=== PATIENT | female | born 1960 | race Caucasian/White ===

== ENCOUNTER 2018-08-31 19:03 | Emergency (ER) | payer MEDICARE, OTHER ==
[~2018-08-31] VITALS: Ht 162.6 cm; Wt 79.4 kg
[2018-08-31] MEDS ORDERED: CRESTOR10 M2 ORAL (19:13)
[2018-08-31] MEDS ORDERED: FLOVENT DISKU100 MC1 IH (19:13)
[2018-08-31] MEDS ORDERED: OMEPRAZOLE20 M2 ORAL (19:13)
[2018-08-31 19:25] VITALS: BP 152/81
--- NOTE | 2018-08-31 19:25 | NUR ---
ED Nurse Note: Pt arrived ED from home, c/o lower abdominal pain for 2 days. Pt is A/O X 4. Vital signs stable at this time, waiting for orders.
--- NOTE | 2018-08-31 19:41 | NUR ---
ED Nurse Note: Blood and urine collected and sent to Lab.
--- NOTE | 2018-08-31 19:49 | NUR ---
ED Nurse Note: Meds given as ordered.
--- NOTE | 2018-08-31 19:51 | Emergency Room Report ---
History of Present Illness General Chief Complaint: Abdominal Pain Source: Patient Present Illness HPI 58-year-old female with history of hiatal hernia and gastroesophageal reflux disease here complaining of increased abdominal pain especially in the left lower quadrant x2 days. She also complains of extreme nausea however denies vomiting and acid reflux. Patient is currently on omeprazole for acid reflux. Has not seen a GI doctor in 2 years. Last endoscopy was in 2016. Patient denies blood in stool, recent travel, fever and chills. Patient is rating the pain 3 out of 10 upon palpation and movement, denies radiation and has not taken any medication for pain. Denies history of hypertension and is compliant with taking his hyperlipidemia medication. Denies smoking, alcohol intake, drug use. Denies urinary frequency, and dysuria. Denies chest pain, shortness of breath, palpitation, dizziness and all other associated symptoms. Allergies: Coded Allergies: SULFA (SULFONAMIDE ANTIBIOTICS) (Verified Allergy, Unknown, 08/31/18) Patient History Past Medical History: see triage record Past Surgical History: unable to obtain Pertinent Family History: none Last Menstrual Period: 5 years ago Now: No Immunizations: UTD Reviewed Nursing Documentation: PMH: Agreed; PSxH: Agreed Nursing Documentation-PMH Past Medical History: No History, Except For Hx Asthma: Yes Hx Gastrointestinal Problems: Yes - GERD, HIATAL HERNIA Review of Systems All Other Systems: negative except mentioned in HPI Physical Exam Vital Signs Date Time Temp Pulse Resp B/P (MAP) Pulse Ox O2 Delivery O2 Flow Rate FiO2 08/31/18 19:06 97.7 67 16 156/88 (110) 98 Room Air Sp02 EP Interpretation: reviewed, normal General Appearance: normal inspection, well appearing, no apparent distress Head: normocephalic, atraumatic Eyes: bilateral eye normal inspection, bilateral eye PERRL ENT: normal ENT inspection, hearing grossly normal, normal pharynx Neck: normal inspection, full range of motion, supple Respiratory: normal inspection, chest non-tender, normal breath sounds, no wheezing Cardiovascular #1: normal inspection, normal peripheral pulses, regular rate, rhythm, no murmur, normal capillary refill Gastrointestinal: normal bowel sounds, no organomegaly, no peritonitis, no bruit, non-distended, no guarding, no pulsatile mass, no rebound, hernia - Reducible and ventral area Rectal: deferred Genitourinary: no CVA tenderness Musculoskeletal: normal inspection, back normal Neurologic: normal inspection, alert, oriented x3 Psychiatric: normal inspection, judgement/insight normal Skin: normal inspection, normal color, no rash, warm/dry, palpation normal, well hydrated Lymphatic: normal inspection, no adenopathy Medical Decision Making PA Attestation All my diagnosis and treatment plans were reviewed ad discussed with my supervising physician Dr. Chávez Diagnostic Impression: Primary Impression: Abdominal pain Additional Impression: Hiatal hernia ER Course 58-year-old female with history of hiatal hernia and gastroesophageal reflux disease here complaining of increased abdominal pain especially in the left lower quadrant x2 days. She also complains of extreme nausea however denies vomiting and acid reflux. Patient is currently on omeprazole for acid reflux. Has not seen a GI doctor in 2 years. Last endoscopy was in 2016. Patient denies blood in stool, recent travel, fever and chills. Patient is rating the pain 3 out of 10 upon palpation and movement, denies radiation and has not taken any medication for pain. Denies history of hypertension and is compliant with taking his hyperlipidemia medication. Denies smoking, alcohol intake, drug use. Denies urinary frequency, and dysuria. Denies chest pain, shortness of breath, palpitation, dizziness and all other associated symptoms. Ddx considered but are not limited to: appendicitis, cholycisitis, gastritis, gasthroentritis, UTI, pylonephritis, SBO, diverticulitis, influenza with GI manifestation, HI, complication with Vital signs: are WNL, pt. is afebrile H&PE are most consistent with: abd pain secondary to viral infx, hiatal hernia ORDERS: abdominal CT, abdominal pain set, EKG, CXR, zofran ED INTERVENTIONS: zofran 4mg IM DISCHARGE: At this time pt. is stable for d/c to home. Will provide printed patient care instructions, and any necessary prescriptions. Care plan and follow up instructions have been discussed with the patient prior to discharge. I advised the patient to follow-up with a primary care provider for referral to reconciliation machine operator regarding her hiatal hernia at this point there is no acute changes secondary to her hernia lower abdominal pain most likely secondary to viral etiology as the rest of her examination and blood work are within normal limits avoid spicy and acidic food take Zofran as directed increase electrolyte water intake EKG Diagnostic Results Rate: normal Rhythm: NSR ST Segments: no acute changes CT/MRI/US Diagnostic Results CT/MRI/US Diagnostic Results : Imaging Test Ordered: abd CT no contrast Impression PELVIS: Appendix: No findings to suggest acute appendicitis. Bladder: Unremarkable. Reproductive: Unremarkable. ABDOMEN and PELVIS: Intraperitoneal space: Unremarkable. Bones/joints: No acute fracture. Soft tissues: Unremarkable. Vasculature: Unremarkable. No abdominal aortic aneurysm. Lymph nodes: No enlarged lymph nodes. IMPRESSION: No acute process. Last Vital Signs Date Time Temp Pulse Resp B/P (MAP) Pulse Ox O2 Delivery O2 Flow Rate FiO2 08/31/18 19:06 97.7 67 16 156/88 (110) 98 Room Air Disposition: HOME, SELF-CARE Condition: Stable Scripts Ondansetron (Zofran) 4 Mg Tablet 4 MG ORAL Q6H PRN for Nausea & Vomiting for 4 Days, #15 TAB Prov: Shila Duarte 08/31/18 Patient Instructions: Abdominal Pain, Adult, Hiatal Hernia Additional Instructions: Follow-up with your reconciliation machine operator regarding your hiatal hernia, at this point there is no bolus in distal esophagus, no enlargement of your hiatal hernia, and your lower abdominal pain is unrelated to your hernia. Take nausea medication as directed take your omeprazole as been prescribed by your primary care provider avoid acidic and spicy food Shila Duarte Aug 31, 2018 19:51
[2018-08-31 19:56] LABS: BASOPHILS % (AUTO) 1.3 % (0.0-2.0); EOSINOPHILS % (AUTO) 0.7 % (0.0-3.0); HEMATOCRIT 39.2 % (37.0-47.0); HEMOGLOBIN 13.4 G/DL (12.0-16.0); LYMPHOCYTES % (AUTO) 30.7 % (20.0-45.0); MEAN CORPUSCULAR VOLUME 88 FL (80-99); MONOCYTES % (AUTO) 7.3 % (1.0-10.0); NEUTROPHILS % (AUTO) 60.1 % (45.0-75.0); PLATELET COUNT 320 K/UL (150-450); RED BLOOD COUNT 4.47 M/UL (4.20-5.40); RED CELL DISTRIBUTION WIDTH 11.5 % (11.6-14.8); WHITE BLOOD COUNT 6.8 K/UL (4.8-10.8)
[2018-08-31 20:00] LABS: APPEARANCE,URINE SLIGHTLY CLOUDY; BILIRUBIN, URINE NEGATIVE (NEGATIVE); COLOR,URINE PALE YELLOW; GLUCOSE, URINE (UA) NEGATIVE (NEGATIVE); KETONES,URINE NEGATIVE (NEGATIVE); LEUKOCYTE ESTERASE ,URINE NEGATIVE (NEGATIVE); NITRITE,URINE NEGATIVE (NEGATIVE); PH,URINE 6 (4.5-8.0); PROTEIN,URINE NEGATIVE (NEGATIVE); UROBILINOGEN,URINE NORMAL MG/DL (0.0-1.0)
[2018-08-31 20:05] LABS: ANION GAP 7 mmol/L (5-15); BLOOD UREA NITROGEN 13 mg/dL (7-18); CALCIUM 9.6 MG/DL (8.5-10.1); CARBON DIOXIDE 29 MMOL/L (21-32); CHLORIDE 103 MMOL/L (98-107); CREATININE 0.8 MG/DL (0.55-1.30); POTASSIUM 3.8 MMOL/L (3.5-5.1); SODIUM 139 MMOL/L (136-145)
[2018-08-31 20:19] LABS: ALANINE AMINOTRANSFERASE 21 U/L (12-78); ALBUMIN 3.6 G/DL (3.4-5.0); ALBUMIN/GLOBULIN RATIO 0.8 (1.0-2.7); ALKALINE PHOSPHATASE 99 U/L (46-116); ASPARTATE AMINO TRANSFERASE 20 U/L (15-37); BILIRUBIN,TOTAL 0.2 MG/DL (0.2-1.0); CKMB 0.9 NG/ML (0.0-3.6)
--- NOTE | 2018-08-31 20:43 | Diagnostic Imaging Report ---
EXAM: CT Abdomen and Pelvis Without Intravenous Contrast CLINICAL HISTORY: ABD PAIN TECHNIQUE: Axial computed tomography images of the abdomen and pelvis without intravenous contrast. CTDI is 17.05 mGy and DLP is 830 mGy-cm. One or more of the following dose reduction techniques were used: automated exposure control, adjustment of the mA and/or kV according to patient size, use of iterative reconstruction technique. COMPARISON: No relevant prior studies available. FINDINGS: Lung bases: Unremarkable. ABDOMEN: Liver: Unremarkable Gallbladder and bile ducts: No calcified stones. No ductal dilation. Pancreas: Unremarkable. Spleen: Unremarkable. Adrenals: Unremarkable. Kidneys and ureters: No renal calculi or obstructive changes. Stomach and bowel: No renny mural thickening. Nonobstructive bowel gas pattern. PELVIS: Appendix: No findings to suggest acute appendicitis. Bladder: Unremarkable. Reproductive: Unremarkable. ABDOMEN and PELVIS: Intraperitoneal space: Unremarkable. Bones/joints: No acute fracture. Soft tissues: Unremarkable. Vasculature: Unremarkable. No abdominal aortic aneurysm. Lymph nodes: No enlarged lymph nodes. IMPRESSION: No acute process.
[2018-08-31] MEDS ORDERED: ZOFRAN4 M1 ORAL (20:53)
[2018-08-31 21:06] VITALS: BP 149/78
--- NOTE | 2018-08-31 21:06 | NUR ---
ER DISCHARGE NOTE: Patient is cleared to be discharged per Shila Duarte/DEEP. Pt is aox4 on room air with stable vital signs. Pt was given dc and prescription instructions and was able to verbalize understanding. Pt IV and ID band removed. pt is able to ambulate with steady gait and took all belongings.
== END 2018-08-31 21:06 | disposition home or self-care (01) ==
LOC: EMR 19:25
DX: R10.9 Unspecified abdominal pain (principal); K44.9 Diaphragmatic hernia without obstruction or gangrene; Z88.2 Allergy status to sulfonamides; K21.9 Gastro-esophageal reflux disease without esophagitis; E78.5 Hyperlipidemia, unspecified; Z79.899 Other long term (current) drug therapy
CPT/HCPCS: 36415; 74176; 80053; 81003; 82553; 83690; 84484; 85025; 93005; 96372; 99284; J2405